=== PATIENT | female | born 1975 | race Caucasian/White ===

== ENCOUNTER 2018-01-18 18:37 | Emergency (ER) | payer OTHER ==
[2018-01-18 18:41] VITALS: RESP 18; TEMP 98.2
[2018-01-18] MEDS ORDERED: TDAP ADULT 0.5 ML INJ (BOOSTRIX) IM ONE (19:54)
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
[2018-01-18] MEDS ORDERED: CEPHALEXIN 500MG PREPACK#4 BTL TAKEHOME ONE (21:34)
[2018-01-18 22:07] VITALS: BP 112/55; PULSE 76; O2SAT 96
== END 2018-01-18 22:05 | disposition home or self-care (01) ==
PROC: 0HQFXZZ Repair Right Hand Skin, External Approach (ICD-10-PCS; principal; 2018-01-18)
DX: S61.222A Laceration with foreign body of right middle finger without damage to nail, initial encounter (principal); S61.220A Laceration with foreign body of right index finger without damage to nail, initial encounter; Z23 Encounter for immunization; V49.50XA Passenger injured in collision with unspecified motor vehicles in traffic accident, initial encounter; Y92.410 Unspecified street and highway as the place of occurrence of the external cause; Y93.89 Activity, other specified

== ENCOUNTER → 2019-01-02 | Outpatient (CLI) | payer OTHER | LOC: FIMAGING 10:37 | PROVIDERS: ATTEND Surgery | DX: Z12.31 Encounter for screening mammogram for malignant neoplasm of breast (principal); Z80.3 Family history of malignant neoplasm of breast; Z98.890 Other specified postprocedural states ==